=== PATIENT | female | born 1970 | race African-American/Black ===

== ENCOUNTER → 2020-06-14 | Outpatient (CLI) | payer OTHER ==
--- NOTE | 2020-06-14 16:50 | RAD ---
AP and Lateral Views of the Chest 06/14/2020 12:00 AM Indication: Reason: ASTHMA / Spl. Instructions: / History: Comparison: None Findings: There is no focal consolidation or infiltrate identified. The cardiomediastinal silhouette is within normal limits. There is no evidence of pneumothorax or pleural effusion. No acute osseous abnormalities are identified. Impression: No evidence of acute cardiopulmonary process. Electronically signed by: Deepak Huynh MD (06/14/2020 1:25 PM) [id number]
== END ==
LOC: DXRAD 09:46
PROVIDERS: ATTEND Internal Medicine Pulmonary Disease
DX: J45.909 Unspecified asthma, uncomplicated (principal)
CPT/HCPCS: 71046

== ENCOUNTER → 2020-07-16 | Outpatient (CLI) | payer OTHER ==
--- NOTE | 2020-07-16 10:33 | RAD ---
EXAM: Abdomen sonogram. HISTORY: Abnormal liver function laboratory values. TECHNIQUE: Sonographic imaging of the abdomen was performed. COMPARISON: None. FINDINGS: The liver is normal in size. No focal hepatic lesion is seen. The common bile duct is ambrose l in caliber. The gallbladder is unremarkable. The right kidney measures 8.6 cm [id number] and the left kidney measures 10.1 cm [id number]. The spleen is normal in size. The pancreas, aorta and infe rior vena cava are unremarkable. IMPRESSION: 1. No finding to correlate with abnormal liver enzymes laboratory values. 2. Slight decreased right renal size due to measurement technique or mild atrophy. Electronically signed by: Jyoti Luu MD (07/16/2020 10:31 AM) [id number]
== END ==
LOC: US 09:48
PROVIDERS: ATTEND Internal Medicine Gastroenterology
DX: R94.5 Abnormal results of liver function studies (principal)
CPT/HCPCS: 76700

== ENCOUNTER → 2020-12-05 | Outpatient (CLI) | payer OTHER ==
--- NOTE | 2020-12-05 14:17 | RAD ---
EXAM: Pelvic sonogram. HISTORY: Dyspareunia. TECHNIQUE: Sonographic imaging of the pelvis was performed. COMPARISON: None. FINDINGS: The uterus is surgically absent. The ovaries are normal in size and demonstrate normal bloo d flow. There is no pelvic free fluid. IMPRESSION: 1. Surgically absent uterus. 2. Unremarkable ovaries. Electronically signed by: Jyoti Luu MD (12/05/2020 2:14 PM) [id number]
== END ==
LOC: US 12:54
PROVIDERS: ATTEND Obstetrics & Gynecology
DX: N94.10 Unspecified dyspareunia (principal); Z90.710 Acquired absence of both cervix and uterus
CPT/HCPCS: 76856